=== PATIENT | female | born 1975 | race African-American/Black ===

== ENCOUNTER 2016-08-22 12:32 | Emergency (ER) | payer MEDICAID ==
[~2016-08-22] VITALS: Ht 165.1 cm; Wt 117.9 kg
[~2016-08-22 12:32] MED LIST: IBUPROFEN600 MG PO; NAPROSYN500 M1 ORAL; VICODIN 5-5001 EACH PO
[2016-08-22] MEDS ORDERED: NKM (12:44)
[2016-08-22 12:55] VITALS: BP 116/72
--- NOTE | 2016-08-22 13:04 | Emergency Room Report ---
History of Present Illness General Chief Complaint: Upper Respiratory Illness Source: Patient Present Illness HPI 40 YO female presents to the ED c/o dry cough, wheezing, nasal congestion and rhinorrhea x 2 days. Pt. denies N/V/F/C. Pt. denies recent travel or ill contacts, denies difficulty breathing, dyspnea or sputum production. Denies CP, Palpitations, LOC, AMS, dizziness, Changes in Vision, Sensation, paresthesias, or a sudden severe headache. Allergies: Coded Allergies: No Known Allergies (Unverified , 01/19/13) Patient History Past Medical History: see triage record Past Surgical History: none Pertinent Family History: none Last Menstrual Period: 07/19/16 "irregular" Now: No Reviewed Nursing Documentation: PMH: Agreed, PSxH: Agreed Nursing Documentation-PMH Hx Cardiac Problems: Yes - murmur Hx Diabetes: Yes - "[place]" Review of Systems All Other Systems: negative except mentioned in HPI Physical Exam Vital Signs Date Time Temp Pulse Resp B/P Pulse Ox O2 Delivery O2 Flow Rate FiO2 08/22/16 12:40 98.2 78 16 116/72 100 Room Air Sp02 EP Interpretation: reviewed, normal General Appearance: no apparent distress, alert, GCS 15, non-toxic Head: normocephalic, atraumatic Eyes: bilateral eye PERRL, bilateral eye normal inspection ENT: hearing grossly normal, normal pharynx, no angioedema, normal voice Neck: full range of motion, no meningismus, no bony tend, supple/symm/no masses Respiratory: chest non-tender, lungs clear, normal breath sounds, speaking full sentences, wheezing - mild diffuse wheezes bilaterally Cardiovascular #1: regular rate, rhythm, no edema Rectal: deferred Musculoskeletal: back normal, gait/station normal, normal range of motion, non- tender Neurologic: alert, oriented x3, responsive, motor strength/tone normal, sensory intact, speech normal Psychiatric: judgement/insight normal, memory normal, mood/affect normal, no suicidal/homicidal ideation Skin: normal color, no rash, warm/dry, well hydrated Lymphatic: no adenopathy Medical Decision Making PA Attestation Dr. garcia is my supervising Physician whom patient management has been discussed with. Diagnostic Impression: Primary Impression: Bronchitis ER Course Pt. presents to the ED c/o dry cough , wheezing and rhinorrhea x 2 days Ddx considered but are not limited to URI, pneumonia, PE, strep pharyngitis, meningitis, Bronchitis Vital signs: Pt.is afebrile VS are WNL H&PE are most consistent with bronchitis ORDERS: none required at this time, the diagnosis is clinical ED INTERVENTIONS: None required at this time. DISCHARGE: At this time pt. is stable for d/c to home. Will provide printed patient care instructions, and any necessary prescriptions. Care plan and follow up instructions have been discussed with the patient prior to discharge. Last Vital Signs Date Time Temp Pulse Resp B/P Pulse Ox O2 Delivery O2 Flow Rate FiO2 08/22/16 12:55 78 16 Room Air 08/22/16 12:55 98.2 116/72 100 Disposition: HOME, SELF-CARE Condition: Stable Scripts Albuterol Sulfate* (ALBUTEROL SULFATE MDI*) 8.5 Gm Hfa.aer.ad 2 PUFF INH Q4H, #1 INH 0 Refills Prov: Zena Blackwood 08/22/16 Prednisone* (PREDNISONE*) 20 Mg Tablet 40 MG ORAL DAILY for 5 Days, TAB Prov: Zena Blackwood 08/22/16 Loratadine (CLARITIN) 10 Mg Capsule 10 MG ORAL DAILY, #30 CAP Prov: Zena Blackwood 08/22/16 Codeine/Promethazine Hcl* (PROMETHAZINE-CODEINE SYRUP*) 118 Ml Syrup 5 ML ORAL Q6H Y for For Cough, #118 ML 0 Refills Prov: Zena Blackwood 08/22/16 Patient Instructions: Acute Bronchitis Additional Instructions: Take medications as directed. Follow up with PCP in 3-5 days Return sooner to ED if new symptoms occur, or current symptoms become worse. Do not drink alcohol, drive, or operate heavy machinery while taking Cough Syrup as this may cause drowsiness. Zena Blackwood Aug 22, 2016 13:04
[2016-08-22] MEDS ORDERED: PROMETHAZINE-C118 M1 ORAL (13:21)
[2016-08-22] MEDS ORDERED: PREDNISONE20 MG ORAL (13:21)
[2016-08-22] MEDS ORDERED: CLARITIN10 M2 ORAL (13:21)
[2016-08-22 13:28] VITALS: BP 114/72
[2016-08-22] MEDS ORDERED: ALBUTEROL SULF8.5 GM INH (13:29)
== END 2016-08-22 14:14 | disposition home or self-care (01) ==
LOC: EMR 13:40
DX: J40 Bronchitis, not specified as acute or chronic (principal)
CPT/HCPCS: 99282

== ENCOUNTER 2016-09-08 09:50 | Emergency (ER) | payer MEDICAID ==
[~2016-09-08] VITALS: Ht 165.1 cm; Wt 108.9 kg
[~2016-09-08 09:50] MED LIST changes: +ALBUTEROL SULF8.5 GM INH; +CLARITIN10 M2 ORAL; +NKM; +PREDNISONE20 MG ORAL; +PROMETHAZINE-C118 M1 ORAL
[2016-09-08 10:06] VITALS: BP 120/77
[2016-09-08] MEDS ORDERED: PROMETHAZINE-C118 M1 ORAL (10:23)
[2016-09-08] MEDS ORDERED: ALBUTEROL SULF8.5 GM INH (10:23)
[2016-09-08] MEDS ORDERED: CHLORPHENIRAMINE4 M1 PO (10:23)
[2016-09-08 10:28] VITALS: BP 120/77
--- NOTE | 2016-09-08 10:31 | Emergency Room Report ---
History of Present Illness General Chief Complaint: Upper Respiratory Illness Source: Patient Present Illness HPI Patient presents with to 3 days of cough. The cough has been productive of some yellow phlegm. No blood. She is treated for sleep apnea and is having difficulty sleeping because the cough is keeping her awake at night. She does have an inhaler but hasn't been using it. She has not heard herself wheezing. She also has [place] but has not been taking them. She feels cold but denies any fever. There's been slight chest pain with coughing which is central and minimal and not present at this time. She denies any vomiting or diarrhea. This may have been triggered when exposed to sister's cigarette smoke. No rashes, headache, dysuria, joint pain. She had a flu shot. Allergies: Coded Allergies: No Known Allergies (Unverified , 01/19/13) Patient History Past Medical History: see triage record Social History: Denies: smoking Social History Narrative at home Last Menstrual Period: 08/26/16 Reviewed Nursing Documentation: PMH: Agreed, PSxH: Agreed Nursing Documentation-PMH Past Medical History: No History, Except For Hx Diabetes: Yes - borderline Review of Systems All Other Systems: negative except mentioned in HPI Physical Exam Vital Signs Date Time Temp Pulse Resp B/P Pulse Ox O2 Delivery O2 Flow Rate FiO2 09/08/16 10:06 98.1 60 16 120/77 98 Room Air General Appearance: well appearing, no apparent distress, GCS 15, non-toxic Head: normocephalic, atraumatic Eyes: bilateral eye PERRL, bilateral eye normal inspection ENT: hearing grossly normal, normal pharynx, normal voice Neck: full range of motion, supple Respiratory: lungs clear, normal breath sounds, no respiratory distress, speaking full sentences, other - post tussive wheezes (minimal) Cardiovascular #1: regular rate, rhythm Gastrointestinal: normal inspection, normal bowel sounds Musculoskeletal: digits/nails normal, gait/station normal, normal range of motion, no calf tenderness Neurologic: alert, normal gait, grossly normal Psychiatric: mood/affect normal Skin: no rash Medical Decision Making Diagnostic Impression: Primary Impression: Upper respiratory infection Qualified Codes: J06.9 - Acute upper respiratory infection, unspecified ER Course Patient with URI sy. Ddx: viral, bacterial bronchitis, asthma, pneumonia. Lack of fever and productive cough against pneumonia. Has some evidence of bronchospasm. Not toxic. Patient should respond to symptomatic treatment. Patient stable for outpatient observation and treatment. Last Vital Signs Date Time Temp Pulse Resp B/P Pulse Ox O2 Delivery O2 Flow Rate FiO2 09/08/16 10:29 98.1 16 120/77 98 Room Air 09/08/16 10:28 60 Status: unchanged Disposition: HOME, SELF-CARE Condition: Stable Scripts Albuterol Sulfate* (ALBUTEROL SULFATE MDI*) 8.5 Gm Hfa.aer.ad 2 PUFF INH Q4H Y for wheezing, #1 INH 0 Refills Prov: Giorgi Cerda M.D. 09/08/16 Codeine/Promethazine Hcl* (PROMETHAZINE-CODEINE SYRUP*) 118 Ml Syrup 5 ML ORAL Q6H Y for For Cough, #60 ML 0 Refills Prov: Giorgi Cerda M.D. 09/08/16 Chlorpheniramine Maleate (Chlorpheniramine Maleate) 4 Mg Tablet 4 MG PO Q6HR Y for congestion, #14 TAB Prov: Giorgi Cerda M.D. 09/08/16 Patient Instructions: Upper Respiratory Infection, Adult Additional Instructions: OK to take tylenol or advil. Avoid cigarette smoke. Giorgi Cerda M.D. Sep 08, 2016 10:31
== END 2016-09-08 10:40 | disposition home or self-care (01) ==
LOC: EMR 10:30
DX: J06.9 Acute upper respiratory infection, unspecified (principal); R73.03 Prediabetes; Z77.22 Contact with and (suspected) exposure to environmental tobacco smoke (acute) (chronic)
CPT/HCPCS: 99284

== ENCOUNTER 2017-05-18 11:15 | Emergency (ER) | payer MEDICAID ==
[~2017-05-18] VITALS: Ht 165.1 cm; Wt 104.3 kg
[~2017-05-18 11:15] MED LIST changes: +CHLORPHENIRAMINE4 M1 PO
[2017-05-18 11:18] VITALS: BP 112/68
[2017-05-18] MEDS ORDERED: ALBUTEROL SULF8.5 GM INH (12:25)
[2017-05-18] MEDS ORDERED: PREDNISONE20 MG ORAL (12:41)
[2017-05-18 12:51] VITALS: BP 115/69
[2017-05-18 12:52] VITALS: BP 115/69
--- NOTE | 2017-05-19 10:17 | Diagnostic Imaging Report ---
Indication: Shortness of breath Technique: XRAY CHEST 1 V Comparison: 06/27/05 Findings: The cardiomediastinal silhouette is within normal limits. There is no focal consolidation, pneumothorax or pleural effusion. Osseous structures demonstrate no acute abnormality. Impression: No acute cardiopulmonary disease.
--- NOTE | 2017-06-25 05:31 | Emergency Room Report ---
History of Present Illness General Chief Complaint: Flu Like Symptoms Source: Patient, Medical Record Present Illness HPI Patient is a 41-year-old female presented after increased nonproductive cough and headache. The patient gradual onset of symptoms. Patient reports having increased congestion. She had not been having any vomiting or diarrhea. Patient stated that she had been taking [id number] medications. She had no sore throat. She denied any neck stiffness. Allergies: Coded Allergies: No Known Allergies (Unverified , 01/19/13) Patient History Past Medical History: see triage record Last Menstrual Period: 04/27/17 Reviewed Nursing Documentation: PMH: Agreed, PSxH: Agreed Nursing Documentation-PMH Past Medical History: No History, Except For Hx Diabetes: Yes - borderline Review of Systems All Other Systems: negative except mentioned in HPI Physical Exam Vital Signs Date Time Temp Pulse Resp B/P (MAP) Pulse Ox O2 Delivery O2 Flow Rate FiO2 05/18/17 11:18 97.3 72 18 112/68 99 Room Air General Appearance: well appearing, no apparent distress, alert, GCS 15, non- toxic Head: normocephalic, atraumatic ENT: hearing grossly normal, normal voice Neck: full range of motion, supple Respiratory: lungs clear, normal breath sounds, no rhonchi, no respiratory distress, speaking full sentences Cardiovascular #1: normal inspection, normal peripheral pulses, regular rate, rhythm, no edema Gastrointestinal: normal inspection Musculoskeletal: no calf tenderness Neurologic: normal gait Psychiatric: mood/affect normal Skin: no rash Medical Decision Making Diagnostic Impression: Primary Impression: Upper respiratory infection ER Course Patient presented for cough. Differential diagnosis included but was not limited to bronchitis, pneumonia, pulmonary embolism, pericarditis, asthma, foreign body. Patient's benign exam and does not appear to require any laboratory testing at this time. Chest x-ray one view read by radiology showed no acute cardio pulmonary disease. The patient is advised to follow up with primary care doctor in 1-2 days. Patient is advised to return if any worsening condition or if any changes in status that are concerning. Last Vital Signs Date Time Temp Pulse Resp B/P (MAP) Pulse Ox O2 Delivery O2 Flow Rate FiO2 05/18/17 12:52 97.3 70 17 115/69 99 Room Air Status: improved Disposition: HOME, SELF-CARE Condition: Stable Scripts Prednisone* (PREDNISONE*) 20 Mg Tablet 20 MG ORAL DAILY, #10 TAB 0 Refills Prov: Perry Walker 05/18/17 Albuterol Sulfate* (ALBUTEROL SULFATE MDI*) 8.5 Gm Hfa.aer.ad 2 PUFF INH Q6H, #1 EA 0 Refills Prov: Perry Wakler 05/18/17 Patient Instructions: Acute Bronchitis Perry Walker Jun 25, 2017 05:31
== END 2017-05-18 12:53 | disposition home or self-care (01) ==
LOC: EMR 11:50
DX: J20.9 Acute bronchitis, unspecified (principal)
CPT/HCPCS: 71010; 99283

== ENCOUNTER 2017-08-07 02:02 | Emergency (ER) | payer MEDICAID ==
[~2017-08-07] VITALS: Ht 165.1 cm; Wt 106.6 kg
[2017-08-07 02:20] VITALS: BP 123/71
[2017-08-07] MEDS ORDERED: PSEUDOEPHEDRINE30 MG PO (02:34)
[2017-08-07] MEDS ORDERED: IBUPROFEN600 MG ORAL (02:34)
--- NOTE | 2017-08-07 02:35 | Emergency Room Report ---
History of Present Illness General Chief Complaint: Headache Source: Patient Present Illness HPI This is a 41-year-old female with high blood pressure. She presents with chief complaint of headache. Onset tonight. She also has congestion runny nose. Pain is 10 out of 10. Worse with movement. No fever or chills. No nausea no vomiting. Has not tried anything for this. Allergies: Coded Allergies: No Known Allergies (Unverified , 01/19/13) Patient History Past Medical History: see triage record, old chart reviewed, HTN Past Surgical History: none Pertinent Family History: none Social History: Denies: smoking Last Menstrual Period: Jul Now: No Immunizations: other Reviewed Nursing Documentation: PMH: Agreed, PSxH: Agreed Nursing Documentation-PMH Hx Diabetes: Yes - borderline Review of Systems Eye: Denies: eye pain, blurred vision ENT: Reports: nose congestion, Denies: ear pain, throat swelling Respiratory: Denies: cough, shortness of breath Cardiovascular: Denies: chest pain, palpitations Gastrointestinal: Denies: abdominal pain, diarrhea, nausea, vomiting Musculoskeletal: Denies: back pain, joint pain Skin: Denies: rash Neurological: Reports: headache, Denies: numbness Endocrine: Denies: increased thirst, increased urine Hematologic/Lymphatic: Denies: easy bruising All Other Systems: negative except mentioned in HPI Physical Exam Vital Signs Date Time Temp Pulse Resp B/P (MAP) Pulse Ox O2 Delivery O2 Flow Rate FiO2 08/07/17 02:09 97.9 91 18 123/71 100 Room Air vitals normal Sp02 EP Interpretation: reviewed, normal General Appearance: well appearing, no apparent distress, alert Head: normocephalic, atraumatic Eyes: bilateral eye PERRL, bilateral eye EOMI ENT: hearing grossly normal, normal pharynx Neck: full range of motion, supple, no meningismus Respiratory: chest non-tender, lungs clear, normal breath sounds Cardiovascular #1: regular rate, rhythm, no murmur Gastrointestinal: normal bowel sounds, non tender, no mass, no organomegaly, no bruit, non-distended Musculoskeletal: back normal, gait/station normal, normal range of motion Psychiatric: mood/affect normal Skin: warm/dry Medical Decision Making Diagnostic Impression: Primary Impression: Sinus headache ER Course Patient with a sinus headache. No evidence of meningitis, sepsis, pneumonia, bleed or neoplastic process. Last Vital Signs Date Time Temp Pulse Resp B/P (MAP) Pulse Ox O2 Delivery O2 Flow Rate FiO2 08/07/17 02:09 97.9 91 18 123/71 100 Room Air Status: improved Disposition: HOME, SELF-CARE Condition: Stable Scripts Pseudoephedrine Hcl* (SUDAFED*) 30 Mg Tablet 30 MG PO Q6H, #20 TAB Prov: SO ARCINIEGA M.D. 08/07/17 Ibuprofen* (MOTRIN*) 600 Mg Tablet 600 MG ORAL Q8H Y for For Pain, #30 TAB 0 Refills Prov: SO ARCINIEGA M.D. 08/07/17 Patient Instructions: Sinus Headache Additional Instructions: Followup with your Dr. in 7 days. Return if symptom worsen. SO ARCINIEGA M.D. Aug 07, 2017 02:34
[2017-08-07 02:40] VITALS: BP 123/71
[2017-08-07] MEDS ORDERED: Ketorolac 60mg Inj IM ONE (02:45)
== END 2017-08-07 02:40 | disposition home or self-care (01) ==
LOC: EMR 02:30
DX: R51 Headache (principal); R09.81 Nasal congestion; R09.89 Other specified symptoms and signs involving the circulatory and respiratory systems
CPT/HCPCS: 96372; 99283

== ENCOUNTER 2017-10-19 09:57 | Emergency (ER) | payer MEDICAID ==
[~2017-10-19] VITALS: Ht 165.1 cm; Wt 108.9 kg
[~2017-10-19 09:57] MED LIST changes: +IBUPROFEN600 MG ORAL; +PSEUDOEPHEDRINE30 MG PO
[2017-10-19 10:09] VITALS: BP 119/86
[2017-10-19] MEDS ORDERED: Ketorolac 30mg Inj IM ONE (10:30)
[2017-10-19] MEDS: Albuterol ud Inhalation HHN SCH ×2 (10:44→11:02)
[2017-10-19] MEDS ORDERED: ALBUTEROL SULF8.5 GM INH (12:15)
[2017-10-19] MEDS ORDERED: PREDNISONE20 MG ORAL (12:15)
--- NOTE | 2017-10-19 12:19 | Emergency Room Report ---
History of Present Illness General Chief Complaint: Flu Like Symptoms Source: Patient Present Illness HPI 41yo f complains of cough and myalgias headache since yesterday She has a history of COPD, and has not been on steroids in the last few weeks She does not feel short of breath nor is having chest pain, but does feel like she could use an breathing treatment She has inhalers at home as well but has not been using them regularly Allergies: Coded Allergies: No Known Allergies (Unverified , 01/19/13) Patient History Past Medical History: see triage record Last Menstrual Period: 09/24/17 Now: No : 1 Para: 1 Reviewed Nursing Documentation: PMH: Agreed, PSxH: Agreed Nursing Documentation-PMH Past Medical History: No History, Except For Hx Diabetes: Yes - borderline Review of Systems All Other Systems: negative except mentioned in HPI Physical Exam Vital Signs Date Time Temp Pulse Resp B/P (MAP) Pulse Ox O2 Delivery O2 Flow Rate FiO2 10/19/17 09:59 98.7 101 18 119/86 96 Room Air 98.8 10/19/17 10:45 21 Sp02 EP Interpretation: reviewed, normal General Appearance: no apparent distress, alert, non-toxic Head: normocephalic Eyes: bilateral eye normal inspection, bilateral eye PERRL, bilateral eye EOMI ENT: normal ENT inspection, hearing grossly normal, normal pharynx, no angioedema, normal voice, moist mucus membranes Neck: normal inspection, full range of motion, supple, supple/symm/no masses Respiratory: chest non-tender, lungs clear, normal breath sounds, chest symmetrical, palpation of chest normal Cardiovascular #1: normal peripheral pulses, regular rate, rhythm Cardiovascular #2: 2+ radial (R), 2+ radial (L) Gastrointestinal: normal inspection, non tender, soft, no mass, no guarding, no rebound Rectal: deferred Genitourinary: normal inspection, no CVA tenderness Musculoskeletal: back normal, gait/station normal, normal range of motion, non- tender, no calf tenderness Neurologic: alert, responsive, route sales 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 III-XII nml as tested, motor strength/tone normal, sensory intact, speech normal Psychiatric: judgement/insight normal, memory normal, mood/affect normal, no suicidal/homicidal ideation Skin: normal color, no rash, warm/dry, normal turgor Lymphatic: no adenopathy Medical Decision Making Medical: COPD Reaction to Intervention: Improved ER Course Patient with cough and possible mild COPD, given steroids and a nebulizer treatment She was also given Toradol for her pain and feels much improvement Her vital signs are unremarkable and she is not having chest pain or shortness of breath She is very well-appearing will be discharged with an inhaler and prednisone and follow up with her PMD Her lung exam was unremarkable therefore no chest x-rays were done Patient does feel much better after breathing treatment and will be discharged as mentioned Last Vital Signs Date Time Temp Pulse Resp B/P (MAP) Pulse Ox O2 Delivery O2 Flow Rate FiO2 10/19/17 11:30 80 16 99 Room Air 21 10/19/17 11:02 98.8 10/19/17 10:09 119/86 Disposition: HOME, SELF-CARE Condition: Improved Scripts Prednisone* (PREDNISONE*) 20 Mg Tablet 40 MG ORAL DAILY for 5 Days, TAB Prov: LUX ODELL M.D 10/19/17 Albuterol Sulfate* (ALBUTEROL SULFATE MDI*) 8.5 Gm Hfa.aer.ad 2 PUFF INH Q4H, #1 INH 0 Refills Prov: LUX ODELL M.D 10/19/17 Referrals: [facility] (PCP) Patient Instructions: Cough, Adult, [id number] LUX ODELL M.D Oct 19, 2017 12:18
[2017-10-19 12:36] VITALS: BP 119/86
== END 2017-10-19 12:37 | disposition home or self-care (01) ==
LOC: EMR 10:10
DX: J44.9 Chronic obstructive pulmonary disease, unspecified (principal); R51 Headache
CPT/HCPCS: 94640; 99284; J1885; J7512